=== PATIENT | male | born 1970 ===

== ENCOUNTER 2020-11-18 08:31 | Day surgery (SDC) | payer OTHER ==
[~2020-11-18 08:31] MED LIST: CELEXA40 MG PO
== END 2020-11-18 15:05 | disposition home or self-care (01) ==
LOC: CIR.AMB 08:31
PROVIDERS: ATTEND Orthopaedic Surgery
DX: M77.11 Lateral epicondylitis, right elbow (principal); Z20.822 Contact with and (suspected) exposure to COVID-19